=== PATIENT | female | born 1970 | race Caucasian/White ===

== ENCOUNTER 2017-05-18 07:01 | Day surgery (SDC) | payer OTHER ==
[2017-05-17 08:42] VITALS: BMI 28.3
[2017-05-18 07:35] VITALS: TEMP 97.9
[2017-05-18] MEDS ORDERED: MIDAZOLAM HCL 2 MG/2 ML SINGLE DOSE VIAL ONE (09:50)
[2017-05-18] MEDS ORDERED: PROPOFOL 20 ML ONE (09:57)
[2017-05-18] MEDS ORDERED: LIDOCAINE HCL 1%, 10 MG/ML (50 mL VIAL) IJ ONE (10:03)
[2017-05-18] MEDS ORDERED: IOHEXOL 180 MG/1 ML ML IJ ONE (10:03)
[2017-05-18] MEDS ORDERED: BETAMET ACET/BETAMET NA PH 30 MG/5 ML VIAL IJ ONE (10:03)
[2017-05-18] MEDS ORDERED: BUPIVACAINE HCL/PF 0.25% (2.5MG/ML) 10 ML VIAL IJ ONE (10:03)
[2017-05-18 11:53] VITALS: BP 111/69; PULSE 57
[2017-05-18] MEDS ORDERED: BUPIVACAINE HCL/PF 0.25% (2.5MG/ML) 10 ML VIAL ONE (12:09)
[2017-05-18] MEDS ORDERED: BETAMET ACET/BETAMET NA PH 30 MG/5 ML VIAL ONE (12:09)
[2017-05-18] MEDS ORDERED: LIDOCAINE HCL 1%, 10 MG/ML (20ML VIAL) ONE (12:09)
--- NOTE | 2017-05-18 15:33 | PROC ---
Procedure Note Procedure: Date of service: 05/18/2017 Preoperative Diagnosis: Low back pain and lumbar radiculopathy on Left Postoperative Diagnosis: Same Procedure Performed: Lumbar Epidural Steroid Injection (LESI) on Left L4-5 with dye under Fluoroscopy Anesthesia: Local / MAC Anesthesiologist: Procedure: I discussed with the patient in detail about the risks, benefits, and alternatives to treatment not only limited to infection, headache, numbness , weakness, and injury to nerves, blood vessels and muscles. The patient understood, agreed and signed the written consent. The patient was placed in the prone position with the head, abdomen and legs supported with the pillows. The lumbosacral area was prepped and draped with Betadine times three in a sterile fashion. Lumbar vertebrae were identified under the C-arm. At L4-5/ level on the Left side, 3 ml of 1 % Lidocaine was infiltrated into the skin and subcutaneous tissue. A 3 inch, #20 gauge Tuohy needle was advanced to the epidural space with loss of resistance technique under fluoroscopic guidance. Aspiration was negative for cerebrospinal fluid and blood. 2ml of Omnipaque ( radio-opaque dye) was injected to confirm the tip of the needle into epidural space and spread of dye. There was no CSF or vascular spread. The spread of dye was noted cranially and caudally on epidurogram. Aspiration was done again which was negative. A solution of 2.5 ml of Celestone 2.5 ml of 0.25% Marcaine and a total of 5 ml was injected slowly. While Tuohy needle was withdrawn 2.0 ml of 1 % Lidocaine was infiltrated. Bleeding was checked. Betadine was wiped off. A sterile bandage was placed. The patient tolerated the procedure well. There were no immediate complications. The patient was transferred to the recovery room. The patient was observed for some time and discharged as per ASU criteria. The patient was told to apply ice at the injection site. Follow up appointment was given and also call my office at [phone]. If there is any problem, call my office or report to Emergency Room. Salazar Urias M.D.
== END 2017-05-18 11:25 | disposition home or self-care (01) ==
LOC: JASU-SURG 07:01
PROVIDERS: ATTEND Physical Medicine & Rehabilitation
PROC: 3E0R33Z Introduction of Anti-inflammatory into Spinal Canal, Percutaneous Approach (ICD-10-PCS; 2017-05-18)
PROC: B01BYZZ Fluoroscopy of Spinal Cord using Other Contrast (ICD-10-PCS; 2017-05-18)
PROC: 3E0R3BZ Introduction of Anesthetic Agent into Spinal Canal, Percutaneous Approach (ICD-10-PCS; principal; 2017-05-18 09:00)
DX: M54.16 Radiculopathy, lumbar region (principal); M54.9 Dorsalgia, unspecified
CPT/HCPCS: 76000-TC-FY; 84703

== ENCOUNTER 2017-09-18 12:58 | Emergency (ER) | payer OTHER ==
[2017-09-18 13:29] VITALS: BP 149/87; PULSE 70; TEMP 98.4; BMI 29.0
[2017-09-18] MEDS ORDERED: DIPHTH,PERTUSS(ACELL),TET 0.5 ML DISP.SYRIN IM ONE (14:17)
--- NOTE | 2017-09-18 14:23 | PDOC ---
History of Present Illness - General Chief Complaint: Laceration Stated Complaint: LACERATION Time Seen by Provider: 09/18/17 13:39 History Source: Patient Exam Limitations: Clinical Condition - History of Present Illness Initial Comments: 09/18/17 14:18 Patient with no significant medical history presenting with laceration to back of left hand by glass at home an hour ago. Patient does not recall last tetanus vaccine Timing/Duration: 1 hour Past History - Past Medical History Allergies/Adverse Reactions: Allergies Allergy/AdvReac Type Severity Reaction Status Date / Time No Known Allergies Allergy Verified 09/18/17 13:29 Home Medications: Ambulatory Orders Cephalexin [Keflex] 500 mg PO BID 7 Days #14 capsule 09/18/17 Ibuprofen 800 mg PO TID PRN #12 tablet 09/18/17 Mupirocin Ointment [Bactroban 2% Ointment -] 1 applic TP BID #1 tube 09/18/17 COPD: No - Surgical History Abdominal Surgery: Yes (tubal ligation) - Immunization History Immunization Up to Date: Yes - Suicide/Smoking/Psychosocial Hx Smoking History: Never smoked Have you smoked in the past 12 months: No Number of Cigarettes Smoked Daily: 0 Cigars Per Day: 0 Information on smoking cessation initiated: No Hx Alcohol Use: No Drug/Substance Use Hx: No Substance Use Type: None Hx Substance Use Treatment: No Review of Systems - Review of Systems Able to Perform ROS?: Yes Is the patient limited Mongolian proficient: No Constitutional: No: Chills, Diaphoresis, Fever, Loss of Appetite, Malaise, Night Sweats, Weakness, Weight Stable, Unintentional Wgt. Loss, Unexplained wgt Loss, Other HEENTM: No: Eye Pain, Blurred Vision, Tearing, Recent change in vision, Double Vision, Cataracts, Ear Pain, Ocular Prothesis, Ear Discharge, Nose Pain, Nose Congestion, Tinnitus, Nose Bleeding, Hearing Loss, Throat Pain, Throat Swelling , Mouth Pain, Dental Problems, Difficulty Swallowing, Mouth Swelling, Other Respiratory: No: Cough, Orthopnea, Shortness of Breath, SOB with Exertion, SOB at Rest, Stridor, Wheezing, Productive cough, Hemoptysis, Other Cardiac (ROS): No: Chest Pain, Edema, Irregular Heart Rate, Lightheadedness, Palpitations, Syncope, Chest Tightness, Other ABD/GI: No: Abdominal Distended, Abd. Pain w/ defecation, Blood Streaked Bowels , Constipated, Diarrhea, Difficulty Swallowing, Nausea, Poor Appetite, Poor Fluid Intake, Rectal Bleeding, Vomiting, Indigestion, Abdominal cramping, Tarry Stools, Other Musculoskeletal: Yes: Muscle Pain (left hand over laceration) Integumentary: Yes: See HPI, Other (left back of hand laceration) All Other Systems: Reviewed and Negative *Physical Exam - Vital Signs Last Vital Signs Temp Pulse Resp BP Pulse Ox 98.4 F 70 18 149/87 100 09/18/17 13:26 09/18/17 13:26 09/18/17 13:26 09/18/17 13:26 09/18/17 13:26 - Physical Exam Comments: 09/18/17 14:20 GENERAL: Well developed, well nourished. Awake and alert. No acute distress. HEENT: Normocephalic, atraumatic. PERRLA, EOMI. No conjunctival pallor. Sclera are non- icteric. Moist mucous membranes. Oropharynx is clear. NECK: Supple. Full ROM. No JVD. Carotid pulses 2+ and symmetric, without bruits. No thyromegaly. No lymphadenopathy. CARDIOVASCULAR: Regular rate and rhythm. No murmurs, rubs, or gallops. Distal pulses are 2+ and symmetric. PULMONARY: No evidence of respiratory distress. Lungs clear to auscultation bilaterally. No wheezing, rales or rhonchi. ABDOMINAL: Soft. Non-tender. Non-distended. No rebound or guarding. No organomegaly. Normoactive bowel sounds. MUSCULOSKELETAL 3cm laceration to dorsal aspect of left hand. Normal neuro exam of left hand Normal range of motion at all joints. No bony deformities or tenderness. No CVA tenderness. EXTREMITIES: No cyanosis. No clubbing. No edema. No calf tenderness. SKIN: 3 cm superficial laceration to dorsal aspect of left hand third to fourth metacarpals with minimal bleeding NEUROLOGICAL: Alert, awake, appropriate. Cranial nerves 2-12 intact. No deficits to light touch and temperature in face, upper extremities and lower extremities. No motor deficits in the in face, upper extremities and lower extremities. Normoreflexic in the upper and lower extremities. Normal speech. Toes are down- going bilaterally. Gait is normal without ataxia. PSYCHIATRIC: Cooperative. Good eye contact. Appropriate mood and affect. General Appearance: Yes: Nourished, Appropriately Dressed. No: Apparent Distress Procedures - Laceration/Wound Repair Left Posterior Distal Dorsal Hand Wound Length: 2.6 to 5.0 cm Wound Explored: no foreign body present Wound's Depth, Shape: superficial, linear Irrigated w/ Saline: Yes Betadine Prep: Yes Anesthesia: 1% Lidocaine Amount of Anesthetic (ccs): 2 Wound Debrided: none Wound Repaired With: Sutures Suture Size/Type: 5:0, nylon Number of Sutures: 3 Layer Closure: No Sterile Dressing Applied: Yes Splint Applied: No Sling Applied: No Progress: 09/18/17 14:24 A centimeters superficial laceration to dorsal aspect of left hand clean with Betadine. Wound irrigated with normal saline. wound infiltrated with 2 mL 1% lidocaine. Wound closed with 3 interrupted 5-0 nylon sutures. Hemostasis achieved bacitracin applied to wound and covered with adhesive bandage. Tetanus was seen given the patient tolerated procedure well Medical Decision Making - Medical Decision Making 09/18/17 14:26 Patient with no significant past medical history presenting with laceration to back of left hand. Wound closed with 3 interrupted sutures sterile fashion. Tetanus vaccine given funk discharge home on prophylactic Keflex and topical Bactroban. Patient to follow-up in a week for suture removal *DC/Admit/Observation/Transfer Diagnosis at time of Disposition: Hand laceration Qualifiers: Encounter type: initial encounter Foreign body presence: without foreign body Laterality: left Qualified Code(s): S61.412A - Laceration without foreign body of left hand, initial encounter - Discharge Dispostion Disposition: HOME Condition at time of disposition: Good Decision to Admit order: No - Prescriptions Prescriptions: Cephalexin [Keflex] 500 mg PO BID 7 Days #14 capsule Ibuprofen 800 mg PO TID PRN #12 tablet PRN Reason: pain Mupirocin Ointment [Bactroban 2% Ointment -] 1 applic TP BID #1 tube - Referrals Referrals: Mansoor Woods MD [Primary Care Provider] - - Patient Instructions Additional Instructions: Take medications as prescribed. Apply topical cream to wound twice a day and follow-up in one week for suture removal - Post Discharge Activity
== END 2017-09-18 15:24 | disposition home or self-care (01) ==
LOC: JERFT 12:58
PROC: 0HQGXZZ Repair Left Hand Skin, External Approach (ICD-10-PCS; principal; 2017-09-18)
PROC: 3E0234Z Introduction of Serum, Toxoid and Vaccine into Muscle, Percutaneous Approach (ICD-10-PCS; 2017-09-18)
DX: S61.412A Laceration without foreign body of left hand, initial encounter (principal); W25.XXXA Contact with sharp glass, initial encounter; Y93.89 Activity, other specified; Y92.038 Other place in apartment as the place of occurrence of the external cause; Y99.8 Other external cause status
CPT/HCPCS: 12002; 90471; 90715; 99281-25

== ENCOUNTER 2017-09-25 13:20 | Emergency (ER) | payer OTHER ==
[2017-09-25 13:25] VITALS: BP 109/62; PULSE 68; TEMP 97.6; BMI 30.2
--- NOTE | 2017-09-25 13:36 | PDOC ---
Suture Removal/Wound Check HPI - History of Present Illness Chief Complaint: Suture/Staple Removal(Here) Stated Complaint: STITCHES REMOVAL Time Seen by Provider: 09/25/17 13:26 History Source: Yes: Patient, Old Records Exam Limitations: Yes: No Limitations Treated at: [facility] ED Date of Last ED visit: 09/18/17 - Previous ED Treatment Type of procedure performed on last visit: Yes: Laceration Repair Tetanus Immunization: Yes: Up to Date Antibiotics Prescribed: No Past History - Past Medical History Allergies/Adverse Reactions: Allergies Allergy/AdvReac Type Severity Reaction Status Date / Time No Known Allergies Allergy Verified 09/25/17 13:25 Home Medications: Ambulatory Orders Cephalexin [Keflex] 500 mg PO BID 7 Days #14 capsule 09/18/17 Ibuprofen 800 mg PO TID PRN #12 tablet 09/18/17 Mupirocin Ointment [Bactroban 2% Ointment -] 1 applic TP BID #1 tube 09/18/17 COPD: No - Surgical History Abdominal Surgery: Yes (tubal ligation) - Immunization History Immunization Up to Date: Yes - Suicide/Smoking/Psychosocial Hx Smoking History: Never smoked Have you smoked in the past 12 months: No Number of Cigarettes Smoked Daily: 0 Cigars Per Day: 0 Hx Alcohol Use: No Drug/Substance Use Hx: No Substance Use Type: None Hx Substance Use Treatment: No Suture Removal/Wound Check PE - Physical Exam Laceration/Wound Check Symptoms: reports: None Current Severity Level: None Maximum Severity Level: None Pain Localization: None Location of Laceration/Wound: left: Hand Pain Radiation: None *Review of Systems - Review of Systems Able to Perform ROS?: Yes All Other Systems: Reviewed and Negative *Physical Exam - Vital Signs Last Vital Signs Temp Pulse Resp BP Pulse Ox 97.6 F 68 18 109/62 99 09/25/17 13:23 09/25/17 13:23 09/25/17 13:23 09/25/17 13:23 09/25/17 13:23 - Physical Exam General Appearance: Yes: Appropriately Dressed. No: Apparent Distress Integumentary: positive: Other (Laceration with [address] presents to the dorsum of the right hand over the MCP of the fourth digit) Medical Decision Making - Medical Decision Making 09/25/17 13:35 A/P: 46-year-old woman with laceration to her left hand sustained one week ago [address] to the dorsum of the left hand over the fourth MCP Wound edges well approximated but not healed at this time Mild erythema noted No discharge or drainage present No pain to palpation Patient advised to return in 3 days for reevaluation as sutures are not ready to be removed at this time. *DC/Admit/Observation/Transfer Diagnosis at time of Disposition: Encounter for wound re-check - Discharge Dispostion Disposition: HOME Condition at time of disposition: Stable Decision to Admit order: No - Referrals Referrals: Mansoor Woods MD [Primary Care Provider] - - Patient Instructions Additional Instructions: Sutures were not ready to be removed today. Return in 3 days for reevaluation of wound and possible suture removal. - Post Discharge Activity
== END 2017-09-25 13:38 | disposition home or self-care (01) ==
LOC: JERFT 13:20
DX: Z48.817 Encounter for surgical aftercare following surgery on the skin and subcutaneous tissue (principal)
CPT/HCPCS: 99281-25

== ENCOUNTER 2018-01-29 14:53 | Emergency (ER) | payer OTHER ==
[2018-01-29 14:59] VITALS: BP 131/73; PULSE 104; TEMP 98.4; BMI 29.0
--- NOTE | 2018-01-29 15:17 | PDOC ---
History of Present Illness - General Chief Complaint: Urinary Problem Stated Complaint: POST OP PAIN Time Seen by Provider: 01/29/18 15:17 - History of Present Illness Initial Comments: 47 year old female with history of cystocele (multiparous x 6, s/p surgical correction 11 days prior because of urinary retention) and radiculopathy ( previous epidural) presenting with urinary retention since yesterday. Patient states that she was at Dr. Woods (urology) yesterday and he performed a catheterization and she as able to urinate at home that night. Since then she has had trouble urinating and has had a painful, enlarging lower abdomen. Denies fevers, chills, nausea, vomiting, or other symptoms. 01/29/18 15:29 Past History - Past Medical History Allergies/Adverse Reactions: Allergies Allergy/AdvReac Type Severity Reaction Status Date / Time No Known Allergies Allergy Verified 01/29/18 14:59 Home Medications: Ambulatory Orders NK [No Known Home Medication] 09/25/17 COPD: No - Surgical History Abdominal Surgery: Yes (tubal ligation) - Immunization History Immunization Up to Date: Yes - Suicide/Smoking/Psychosocial Hx Smoking History: Never smoked Have you smoked in the past 12 months: No Number of Cigarettes Smoked Daily: 0 Cigars Per Day: 0 Hx Alcohol Use: No Drug/Substance Use Hx: No Substance Use Type: None Hx Substance Use Treatment: No Review of Systems - Review of Systems Constitutional: No: Chills, Diaphoresis, Fever Respiratory: No: Cough, Shortness of Breath, Stridor Cardiac (ROS): No: Chest Pain, Edema, Irregular Heart Rate ABD/GI: No: Diarrhea, Nausea, Vomiting : No: Burning, Dysuria, Discharge Musculoskeletal: No: Back Pain Integumentary: No: Bruising, Change in Color, Change in Hair/Nails, Lumps Neurological: No: Headache, Numbness, Paresthesia Psychiatric: No: Anxiety, Depression Hematologic/Lymphatic: No: Anemia, Blood Clots, Easy Bleeding *Physical Exam - Vital Signs Last Vital Signs Temp Pulse Resp BP Pulse Ox 98.4 F 104 H 20 131/73 100 01/29/18 14:55 01/29/18 14:55 01/29/18 14:55 01/29/18 14:55 01/29/18 14:55 - Physical Exam General Appearance: Yes: Nourished, Appropriately Dressed, Apparent Distress, Mild Distress HEENT: positive: EOMI, IRMA, Normal ENT Inspection, Normal Voice Neck: positive: Trachea midline, Normal Thyroid, Supple. negative: Tender, Rigid Respiratory/Chest: positive: Lungs Clear, Normal Breath Sounds. negative: Chest Tender, Respiratory Distress, Accessory Muscle Use Cardiovascular: positive: Regular Rhythm, Tachycardia Gastrointestinal/Abdominal: positive: Normal Bowel Sounds, Tender, Protuberent, Tenderness (lower abdomen/ suprapubic region large and tender to palpation. ) Musculoskeletal: positive: Normal Inspection. negative: Decreased Range of Motion Extremity: positive: Normal Capillary Refill, Normal Inspection, Normal Range of Motion, Pelvis Stable. negative: Tender Integumentary: positive: Normal Color, Dry, Warm Neurologic: positive: Fully Oriented, Alert, Normal Mood/Affect, Normal Response , Motor Strength 5/5 Moderate Sedation - Procedure Monitoring Vital Signs: Procedure Monitoring Vital Signs Temperature 98.4 F 01/29/18 14:55 Pulse Rate 104 H 01/29/18 14:55 Respiratory Rate 20 01/29/18 14:55 Blood Pressure 131/73 01/29/18 14:55 O2 Sat by Pulse Oximetry (%) 100 01/29/18 14:55 Medical Decision Making - Medical Decision Making 47 year old 11 days s/p cystocele repair with post op urinary retention issues presenting will lower abdominal cramping and lack of urination for the past 18 hours. Urinary catheter was placed and 250 mL drained out with relief of suprapubic pressure and pain. UA negative for infection, culture pending. We spoke to Dr. Woods who said we could discharge her with a leg bag and have her follow up in his office on Wednesday morning at 9 AM. 01/29/18 16:42 *DC/Admit/Observation/Transfer Diagnosis at time of Disposition: Urinary retention with incomplete bladder emptying - Discharge Dispostion Disposition: HOME Condition at time of disposition: Improved Decision to Admit order: No - Referrals Referrals: Mansoor Woods MD [Primary Care Provider] - - Patient Instructions Printed Discharge Instructions: DI for Urinary Retention in Women Additional Instructions: Mantenga el catter de Cespedes en jones lugar hasta que babak al Dr. [facility] la maana. La [place]ols[place] debe permanecer alrededor de jones pierna. Regrese a la giovana de emergencias si tiene sntomas nuevos o que empeoran. - Post Discharge Activity
--- NOTE | 2018-01-29 16:06 | PDOC ---
Attending Attestation - HPI HPI: 01/29/18 16:42 The patient is a 47 year old female with past medical history of uterine prolapse presents to the ED with urinary retention since yesterday. Patient was seen by her urologist yesterday which placed a catheter and she was able to urinate a little yesterday. But since then, shes had dysuria and difficulty urinating. Denies any fever or chills. Denies any hematuria. - Medical Decision Making 01/29/18 16:42 Documentation prepared by Shefali Johnson, acting as medical claims examiner for Sierra Delgadillo MD. <Shefali Johnson - Last Filed: 01/29/18 16:42> - Resident Resident Name: Wolfgang Madrigal - ED Attending Attestation I have performed the following: I have examined & evaluated the patient, The case was reviewed & discussed with the resident, I agree w/resident's findings & plan, Exceptions are as noted - Physicial Exam PE: GENERAL: Awake, alert, and fully oriented, in no acute distress HEAD: No signs of trauma EYES: PERRLA, EOMI, sclera anicteric, conjunctiva clear ENT: Auricles normal inspection, hearing grossly normal, nares patent, oropharynx clear without exudates. Moist mucosa NECK: Normal ROM, supple, no lymphadenopathy, JVD, or masses LUNGS: Breath sounds equal, clear to auscultation bilaterally. No wheezes, and no crackles HEART: Regular rate and rhythm, normal S1 and S2, no murmurs, rubs or gallops ABDOMEN: Soft, nontender, normoactive bowel sounds. No guarding, no rebound. No masses EXTREMITIES: Normal range of motion, no edema. No clubbing or cyanosis. No cords, erythema, or tenderness NEUROLOGICAL: Cranial nerves II through XII grossly intact. Normal speech, normal gait SKIN: Warm, Dry, normal turgor, no rashes or lesions noted. - Medical Decision Making Pt with relief s/p iverson placement. +1100 cc in the iverson bag. Outpatient urology f/u, leg bag. <Sierra Delgadillo - Last Filed: 01/29/18 17:58>
[2018-01-29 16:31] LABS: URINE APPEARANCE CLEAR; URINE BILIRUBIN NEGATIVE (<2.0 mg/dL); URINE COLOR STRAW; URINE GLUCOSE (UA) NEGATIVE (NEGATIVE); URINE KETONE NEGATIVE (NEGATIVE); URINE LEUK ESTERASE NEGATIVE (NEGATIVE); URINE NITRITE NEGATIVE (NEGATIVE); URINE PROTEIN NEGATIVE (NEGATIVE); URINE UROBILINOGEN NEGATIVE mg/dL (0.2-1.0)
== END 2018-01-29 17:30 | disposition home or self-care (01) ==
LOC: JER 14:53
DX: R33.8 Other retention of urine (principal); G89.18 Other acute postprocedural pain
CPT/HCPCS: 81003; 87086; 99283-25

== ENCOUNTER 2018-02-11 18:34 | Emergency (ER) | payer OTHER ==
--- NOTE | 2018-02-11 18:39 | PDOC ---
Rapid Medical Evaluation Time Seen by Provider: 02/11/18 18:36 Medical Evaluation: Allergies Allergy/AdvReac Type Severity Reaction Status Date / Time No Known Allergies Allergy Verified 01/29/18 14:59 I have performed a brief in-person evaluation of this patient. The patient presents with a chief complaint of: pain with urination Pertinent physical exam findings: left pelvic pain I have ordered the following: UA/culture, labs The patient will proceed to the ED for further evaluation. Discharge Disposition - Diagnosis Dysuria - Referrals Referrals: Mansoor Woods MD [Primary Care Provider] - - Patient Instructions - Post Discharge Activity
[2018-02-11 18:41] VITALS: BP 155/92; PULSE 111; TEMP 97.8; BMI 28.3
[2018-02-11 18:54] LABS: URINE APPEARANCE CLOUDY; URINE BILIRUBIN NEGATIVE (<2.0 mg/dL); URINE COLOR AMBER; URINE GLUCOSE (UA) NEGATIVE (NEGATIVE); URINE KETONE NEGATIVE (NEGATIVE); URINE LEUK ESTERASE 3+ (NEGATIVE); URINE NITRITE POSITIVE (NEGATIVE); URINE PROTEIN NEGATIVE (NEGATIVE); URINE UROBILINOGEN 4.0 E.U/dl mg/dL (0.2-1.0)
[2018-02-11] MEDS ORDERED: ACETAMINOPHEN 1000 MG/100 ML VIAL (NON FORMULARY) IVPB ONE (19:23)
[2018-02-11 19:29] LABS: EPI CELLS FEW /HPF (FEW); URINE BACTERIA RARE /hpf (NONE SEEN); URINE MUCUS RARE
[2018-02-11] MEDS ORDERED: ACETAMINOPHEN INJECTION 100 ML IVPB ONE (19:48)
[2018-02-11 20:19] LABS: BASO % 0.2 % (0-2.0); EOS % 0.7 % (0-4.5); HEMATOCRIT 33.5 % (32.4-45.2); HEMOGLOBIN 11.7 GM/dL (10.7-15.3); LYMPH % 13.3 % (8-40); MCH 29.6 pg (25.7-33.7); MCHC 34.8 g/dl (32.0-36.0); MONO % 6.3 % (3.8-10.2); NEUT % 79.5 % (42.8-82.8); PLATELET COUNT 439 K/MM3 (134-434); RBC 3.94 M/mm3 (3.60-5.2); RDW 13.2 % (11.6-15.6); WHITE BLOOD COUNT 11.5 K/mm3 (4.0-10.0)
--- NOTE | 2018-02-11 20:31 | PDOC ---
History of Present Illness - General Chief Complaint: Urinary Problem Stated Complaint: Urinary Problem Time Seen by Provider: 02/11/18 18:36 History Source: Patient, Family (daughter), Process Improvement Specialist Used ([employer] [id number]) Exam Limitations: Language Barrier - History of Present Illness Initial Comments: 02/11/18 20:21 The patient is a 47 year old female with a PMH of cystocele, s/p surgical repair Jan 18 2018, urinary retention, radiculopathy that presented today to ED complaining of urinary retention. She visited her urologist, Dr Woods yesterday and states that didn't have any problems with urination after Cespedes was removed. She was put on prophylactic Nitrofurantoin, on Phenzopyridine and Bethanechol. Overnight she started having problems with retention of urine that got worse to the point that around 3PM she couldn't urinate at all. She was also complaining of lower back pain on left side, radiating to her left leg and chills. The pain disappeared when Cespedes was placed on arrival to ED. When i saw the patient she was only complaining of discomfort in left lower abdomen and burning with urination. She denies fever, hematuria, palpitations, dizziness, nausea, vomiting. PCP: Mansoor Collazo MD Urologist: Dr. Nathalie Woods Past History - Past Medical History Allergies/Adverse Reactions: Allergies Allergy/AdvReac Type Severity Reaction Status Date / Time No Known Allergies Allergy Verified 01/29/18 14:59 Home Medications: Ambulatory Orders Cefuroxime Axetil [Cefuroxime] 250 mg PO BID 5 Days #10 tablet 02/11/18 COPD: No Other medical history: chronic back pain - Surgical History Abdominal Surgery: Yes (tubal ligation) - Immunization History Immunization Up to Date: Yes - Suicide/Smoking/Psychosocial Hx Smoking History: Never smoked Have you smoked in the past 12 months: No Number of Cigarettes Smoked Daily: 0 Cigars Per Day: 0 Hx Alcohol Use: No Drug/Substance Use Hx: No Substance Use Type: None Hx Substance Use Treatment: No Review of Systems - Review of Systems Able to Perform ROS?: Yes Is the patient limited Bahraini proficient: Yes Constitutional: Yes: Symptoms Reported, Chills. No: Fever HEENTM: No: Symptoms Reported Respiratory: No: Symptoms reported, Cough, Shortness of Breath Cardiac (ROS): Yes: Lightheadedness. No: Symptoms Reported, Chest Pain, Irregular Heart Rate, Palpitations ABD/GI: Yes: Symptoms Reported, Other (LLQ discomfort). No: Constipated, Diarrhea, Nausea, Vomiting : Yes: Symptoms Reported, See HPI, Burning, Dysuria, Flank Pain, Other ( retention). No: Hematuria Musculoskeletal: Yes: Symptoms Reported, Back Pain *Physical Exam - Vital Signs Last Vital Signs Temp Pulse Resp BP Pulse Ox 97.8 F 111 H 24 H 155/92 02/11/18 18:36 02/11/18 18:36 02/11/18 18:36 02/11/18 18:36 - Physical Exam General Appearance: Yes: Nourished, Appropriately Dressed HEENT: positive: EOMI Respiratory/Chest: positive: Lungs Clear, Normal Breath Sounds. negative: Respiratory Distress, Accessory Muscle Use Cardiovascular: positive: Regular Rhythm, Regular Rate, S1, S2. negative: Edema , Murmur Gastrointestinal/Abdominal: positive: Normal Bowel Sounds, Tender (LLQ). negative: Guarding, Rebound Moderate Sedation - Procedure Monitoring Vital Signs: Procedure Monitoring Vital Signs Temperature 97.8 F 02/11/18 18:36 Pulse Rate 111 H 02/11/18 18:36 Respiratory Rate 24 H 02/11/18 18:36 Blood Pressure 155/92 02/11/18 18:36 O2 Sat by Pulse Oximetry (%) ED Treatment Course - LABORATORY CBC & Chemistry Diagram: 02/11/18 20:00 02/11/18 20:00 - ADDITIONAL ORDERS Additional order review: Laboratory Results 02/11/18 18:40 Urine Color Usha Urine Appearance Cloudy Urine pH 8.0 D Ur Specific [place] 1.005 L Urine Protein Negative Urine Glucose (UA) Negative Urine Ketones Negative Urine Blood 3+ H Urine Nitrite Positive Urine Bilirubin Negative Urine Urobilinogen 4.0 e.u/dl H Ur Leukocyte Esterase 3+ H Urine WBC (Auto) 82 Urine RBC (Auto) 1 Ur Epithelial Cells Few Urine Bacteria Rare Urine Mucus Rare - Medications Given in the ED: ED Medications Discontinued Medications Generic Name Dose Route Start Last Admin Trade Name Freq PRN Reason Stop Dose Admin Acetaminophen 1,000 mg 02/11/18 19:23 02/11/18 19:40 Ofirmev Injection - IVPB 02/11/18 19:24 1,000 mg ONCE ONE Administration Medical Decision Making - Medical Decision Making 02/11/18 20:37 47 yo female with a PMH of urinary retention, cystocele, that presented with urinary retention. Cespedes was placed with output of 350 cc od pinkish urine, ordered CBC, CMP, UA. UA with 3+ leuk est, 82 WBC. CBC, CMP pending. 02/11/18 21:16 CBC: WBC 11.5, nl CMP. We called Dr Woods that recommended discharge home with Cespedes cath, antibiotics and follow up on Wednesday (in 3 days). The patient will be given one dose of Ceftriaxone 1 g IV and Cefuroxime 250 mg BID for 5 days, follow up with Urologist on Wednesday. *DC/Admit/Observation/Transfer Diagnosis at time of Disposition: Dysuria, Urinary retention - Discharge Dispostion Disposition: HOME Decision to Admit order: No - Prescriptions Prescriptions: Cefuroxime Axetil [Cefuroxime] 250 mg PO BID 5 Days #10 tablet - Referrals Referrals: Mansoor Woods MD [Primary Care Provider] - 3 days - Patient Instructions Printed Discharge Instructions: DI for Urinary Retention in Women Additional Instructions: You were seen in Emergency Room for urinary retention. We did lab work, urine test and you had Cespedes catheter was placed. You have urinary tract infection that was treated with one dose of Ceftriaxone intravenously and we prescribed antibiotic Cefuroxime to continue twice a day for [address] Woods on Wednesday. If you have fever, severe abdominal pain, back pain or worsening of any of your symptoms, come back to Emergency Room as soon as possible. - Post Discharge Activity
[2018-02-11 20:43] LABS: ALBUMIN 3.9 g/dl (3.4-5.0); ALK PHOS 147 U/L (45-117); ANION GAP 8 MMOL/L (8-16); BILIRUBIN,TOTAL 0.3 mg/dL (0.2-1); BLOOD UREA NITROGEN 11 mg/dL (7-18); CALCIUM 8.6 mg/dL (8.5-10.1); CHLORIDE 103 mmol/L (98-107); CO2 28 mmol/L (21-32); CREATININE 0.7 mg/dL (0.55-1.3); GLUCOSE,RANDOM 110 mg/dL (74-106); POTASSIUM 3.8 mmol/L (3.5-5.1); SGOT/AST 19 U/L (15-37); SGPT/ALT 28 U/L (13-61); SODIUM 139 mmol/L (136-145); TOT PROT 7.4 g/dl (6.4-8.2)
--- NOTE | 2018-02-11 21:03 | PDOC ---
Attending Attestation - HPI HPI: 02/11/18 21:07 The patient is a 47-year-old female with a past medical history significant for cystocele (on Jan 18, 2018 at [facility]) and radiculopathy presents to the emergency department with urinary retentions since yesterday. The patient reports she had her iverson removed at Dr. Rojas office earlier yesterday since then the patients been having difficulty voiding. The patient reports she is able to pass a little urine, unable to empty her bladder. The patient reports associated symptoms of back pain and chills down the legs. The patient reports prior similar incidents 6 times since the cystocele repair. Denies fever, cough, chest pain, SOB, lower abdomen pain, changes in bowel habits, numbness, or loss of sensation. Meds: Macrobid, pyridium (1 tab x3 daily), bethanechol (x1 a day), estradiol cream. Allergies: NKA Social history: None reported Surgical history: tubal ligation and Cystocele repair. PCP: Mansoor Collazo MD Urologist: Dr. Nathalie Woods - Physicial Exam PE: 02/11/18 21:56 GENERAL: The patient is in no acute distress. LUNGS: Breath sounds equal, clear to auscultation bilaterally. No wheezes, and no crackles. HEART:Regular rate and rhythm, normal S1 and S2 without murmur, rub or gallop. ABDOMEN: Soft, nontender, normoactive bowel sounds. No guarding, no rebound. No masses palpable. : Urinary iverson in place that draining 300 cc of yellow urine. EXTREMITIES: Normal range of motion, no edema. No clubbing or cyanosis. No erythema, or tenderness. - Medical Decision Making 02/11/18 21:07 Documentation prepared by Enirqueta Styles, acting as medical center representative for Salome Hawkins MD. <Enriqueta Styles - Last Filed: 02/11/18 21:56> - Resident Resident Name: Jessica العراقي - ED Attending Attestation I have performed the following: I have examined & evaluated the patient, The case was reviewed & discussed with the resident, I agree w/resident's findings & plan, Exceptions are as noted - Medical Decision Making 02/11/18 21:17 47 yo F presenting to the ER s/p urinary retention She is s/p surgical repair of cystocele on 01/18 Since that time, he has had a iverson cathether placed and removed 4 times She was last seen by Dr Woods yesterday, iverson cathether was removed Since that time she has been able to void small amounts (+) flank pain (-) fevers or chills Mild suprapubic tenderness 02/11/18 21:42 Laboratory Tests 02/11/18 02/11/18 02/11/18 18:40 20:00 20:00 WBC 11.5 H Hgb 11.7 Hct 33.5 Plt Count 439 H D Neutrophils % 79.5 Lymphocytes % 13.3 D BUN 11 Creatinine 0.7 Urine Blood 3+ H Urine Nitrite Positive Urine Bilirubin Negative Ur Leukocyte Esterase 3+ H Urine WBC (Auto) 82 Urine RBC (Auto) [address] Woods He recommends d/x with leg bag, and start cipro I do not see sensitivities for Cipro will do a dose of Ceftriaxone now followed by cefpodoxime <Salome Hawkins - Last Filed: 02/12/18 19:41>
[2018-02-11] MEDS ORDERED: CEFTRIAXONE 1 GM in DEXTROSE 5%-WATER - 100 ML IVPB ONE (21:06)
[2018-02-11] MEDS ORDERED: CEFTRIAXONE 1 GM/50 ML BAG ONE (21:28)
== END 2018-02-11 21:55 | disposition home or self-care (01) ==
LOC: JER 18:34
PROC: 0T9B70Z Drainage of Bladder with Drainage Device, Via Natural or Artificial Opening (ICD-10-PCS; principal; 2018-02-11)
PROC: 3E033NZ Introduction of Analgesics, Hypnotics, Sedatives into Peripheral Vein, Percutaneous Approach (ICD-10-PCS; 2018-02-11)
PROC: 3E03329 Introduction of Other Anti-infective into Peripheral Vein, Percutaneous Approach (ICD-10-PCS; 2018-02-11)
DX: R30.0 Dysuria (principal); R33.9 Retention of urine, unspecified
CPT/HCPCS: 36415; 51702; 80053; 81003; 81015; 85025; 87086; 87186; 96365; 96375; 99283-25; J0131

== ENCOUNTER 2018-05-12 18:12 | Emergency (ER) | payer OTHER ==
[2018-05-12 18:20] VITALS: TEMP 97.8; BMI 30.2
[2018-05-12] MEDS ORDERED: methylPREDNISolone NA SUCC 125 MG/2 ML VIAL IVPB ONE (18:30)
--- NOTE | 2018-05-12 18:30 | PDOC ---
Attending Attestation - HPI HPI: 05/12/18 20:27 The patient is a 47-year-old female with a past medical history significant for cystocele (on Jan 18, 2018 at [facility]) and radiculopathy presents to the emergency department with hives. The patient was at Urologists office earlier today at where she received an IM Toradol injection, and following she developed hives across arms, neck face, and ears. The patient reports she has the sensation of feeling like her throat is closing. Denies nausea, vomiting. Allergies: NKA Social history: None reported Surgical history: tubal ligation and Cystocele repair. PCP: Mansoor Collazo MD Urologist: Dr. Nathalie Woods - Physicial Exam PE: 05/12/18 20:32 GENERAL: The patient is speaking clear sentence and able to tolerate secretions. Awake, alert, and fully oriented, in no acute distress HEAD: No signs of trauma EYES: PERRLA, EOMI, sclera anicteric, conjunctiva clear ENT: no lip, tongue or pharyngeal swelling. Auricles normal inspection, hearing grossly normal, nares patent, oropharynx clear without exudates. Moist mucosa NECK: Normal ROM, supple, no lymphadenopathy, JVD, or masses LUNGS: No stridor. Breath sounds equal, clear to auscultation bilaterally. No wheezes, and no crackles HEART: Regular rate and rhythm, normal S1 and S2, no murmurs, rubs or gallops ABDOMEN: Soft, nontender. No guarding, no rebound. No masses EXTREMITIES: Normal range of motion, no edema. No clubbing or cyanosis. No cords, erythema, or tenderness NEUROLOGICAL: Cranial nerves II through XII grossly intact. Normal speech, normal gait SKIN: +hives across the face. Hives to the upper back and a single episode to the left medial. Warm, Dry, normal turgor, no rashes or lesions noted. - Medical Decision Making 05/12/18 20:32 Documentation prepared by Enriqeuta Styles, acting as medical lead for Liset Van DO. <Enriqueta Styles - Last Filed: 05/12/18 20:32> - Resident Resident Name: Jody Nelson - ED Attending Attestation I have performed the following: I have examined & evaluated the patient, The case was reviewed & discussed with the resident, I agree w/resident's findings & plan, Exceptions are as noted - Medical Decision Making 05/12/18 18:30 I, Dr. Liset Van, DO, attest that this document has been prepared under my direction and personally reviewed by me in its entirety. I further attest, that it accurately reflects all work, treatment, procedures and medical decision -making performed by me. 05/12/18 19:26 a/p: 47yo female with hives and itching -pt was in Dr. Woods office and received an im dose of meds -states itching and hives started at 4p -no difficulty swallowing, no difficulty speaking, no lip or tongue swelling -pt is tolerating secretions -pt with hives to face, arms, across chest and back -so stridor, no wheezing -will give solumedrol, pepcid, benadryl -will monitor and reassess 05/12/18 19:[address] Woods- pt received IM toradol prior to the pelvic exam 05/12/18 20:57 dvt study negative pt states hx of hives to motrin in the past 05/12/18 20:58 hives resolved pt feels better stable for dc to home answered all questions discussed follow up with her urologist, pmd, allergiest, professor of languages <Liset Van - Last Filed: 05/12/18 20:59>
[2018-05-12] MEDS ORDERED: methylPREDNISolone NA SUCC 125 MG/2 ML VIAL ONE ×2 (18:40→18:42)
[2018-05-12] MEDS ORDERED: FAMOTIDINE 20 MG/50 ML IVPB 20 MG/50 ML MG IVPB ONE ×2 (18:41→18:45)
--- NOTE | 2018-05-12 18:51 | PDOC ---
History of Present Illness - General Chief Complaint: Allergic Reaction Stated Complaint: ALLERGIC REACTION Time Seen by Provider: 05/12/18 18:25 - History of Present Illness Initial Comments: Stacy Diaz is a 47yo woman with a PMH of cystocele, s/p surgical repair Jan 18 2018, urinary retention, radiculopathy who presents with rash, itching, and sensation of throat swelling after receiving an injection today at Dr Brett Woods's office. She states that she was feeling well prior to the injection, but she has since had an itchy, raised red rash over her entire body since going home from her appointment. She also feels that her face appears swollen. She feels that her throat is tight, but she denies any wheezing or difficulty breathing. She has not taken any medication to help with the symptoms. Past History - Past Medical History Allergies/Adverse Reactions: Allergies Allergy/AdvReac Type Severity Reaction Status Date / Time ketorolac [From Toradol] AdvReac Severe Swelling Verified 05/12/18 19:41 Home Medications: Ambulatory Orders Diphenhydramine [Benadryl 12.5 MG/5 ML Oral Solution -] 25 mg PO Q6H PRN #28 ml 05/12/18 Famotidine 20 mg PO DAILY #4 tablet 05/12/18 metroNIDAZOLE [Flagyl -] 250 mg PO TID 05/12/18 predniSONE [Deltasone -] 40 mg PO DAILY 4 Days #8 tablet 05/12/18 COPD: No - Surgical History Abdominal Surgery: Yes (tubal ligation) - Immunization History Immunization Up to Date: Yes - Suicide/Smoking/Psychosocial Hx Smoking History: Never smoked Have you smoked in the past 12 months: No Number of Cigarettes Smoked Daily: 0 Cigars Per Day: 0 Information on smoking cessation initiated: No Hx Alcohol Use: No Drug/Substance Use Hx: No Substance Use Type: None Hx Substance Use Treatment: No Review of Systems - Review of Systems Comments:: General: No fevers, no chills, no weight or appetite change, no malaise HEENT: No changes in vision, no changes in hearing, no congestion, no sore throat CV: No chest pain, no palpitations, no LE edema Pulm: No SOB, no cough, no wheezing GI: No nausea or vomiting, no change in bowel habits, no melena : No frequency, no urgency, no dysuria Musc: No back pain, no joint swelling, no recent injury Skin: No rash, no lesions, no erythema Endo: No excessive thirst, no heat/cold intolerance Heme: No unusual bruising or bleeding, no swollen glands Neuro: No syncope, no numbness/tingling, no focal weakness Vasc: No claudication Psych: No recent change in mood, no SI or HI *Physical Exam - Vital Signs Last Vital Signs Temp Pulse Resp BP Pulse Ox 97.8 F 77 19 149/77 97 05/12/18 18:17 05/12/18 18:17 05/12/18 18:17 05/12/18 18:17 05/12/18 18:17 - Physical Exam Comments: General: Uncomfortable HEENT: PERRL, EOMI, mild swelling around eyes. MMM, voice normal, normal neck ROM, no LAD. No visible oropharyngeal swelling. Cards: RRR, no murmur appreciated Pulm: Comfortable on room air, clear to auscultation bilaterally Abd: Soft, nontender, nondistended Ext: Atraumatic. No LE edema. ROM intact. Strength 5/5 and equal bilaterally Vasc: Extremities WWP. Skin: Diffuse hives Neuro: A&Ox3, CN grossly intact, normal speech, motor/sensory grossly intact and symmetric Psych: Mood appropriate to situation Moderate Sedation - Procedure Monitoring Vital Signs: Procedure Monitoring Vital Signs Temperature 97.8 F 05/12/18 18:17 Pulse Rate 77 05/12/18 18:17 Respiratory Rate 19 05/12/18 18:17 Blood Pressure 149/77 05/12/18 18:17 O2 Sat by Pulse Oximetry (%) 97 05/12/18 18:17 Medical Decision Making - Medical Decision Making 05/12/18 18:45 Stacy Diaz is a 47yo woman with a PMH of cystocele, s/p surgical repair Jan 18 2018, urinary retention, radiculopathy who presents with hives and subjective throat swelling after receiving an injection today at Dr Brett Woods's office. - 50mg IV diphenhydramine, 20mg IV famotidine, 125mg IV methylprednisone ordered - No need for epinephrine at this time, no wheezing or respiratory distress - Attempting to reach Dr Woods to determine what type of injection she was given 05/12/18 19:35 - Dr Van spoke to Dr Woods. Was given toradol during her visit today. When asked, Ms Diaz states that she had a reaction to ibuprofen in the past, with a rash on her face. - Dr Woods reports that he was going to have Ms Diaz come tomorrow for a b/ l DVT study due to a postive Justine's sign. Will order while she is here tonight - Re-examined Ms Diaz. She has b/l plantar foot pain. When dorsiflexed, she has pain in the plantar surface of both feet. Also tender to direct palpation. No calf pain. No swelling. 05/12/18 21:00 - Ultrasound negative for DVT - Continues to feel improved. Will discharge home with close follow up - advised to follow up with her PMD as well as an biofuels plant superintendent for testing in a few weeks. Will continue steroids and antihistamines at home. Discussed with Dr Van. Jody Nelson PGY1 *DC/Admit/Observation/Transfer Diagnosis at time of Disposition: Allergic reaction caused by a drug Qualifiers: Encounter type: initial encounter Qualified Code(s): T78.40XA - Allergy, unspecified, initial encounter - Discharge Dispostion Disposition: HOME Condition at time of disposition: Stable Decision to Admit order: No - Prescriptions Prescriptions: Diphenhydramine [Benadryl 12.5 MG/5 ML Oral Solution -] 25 mg PO Q6H PRN #28 ml PRN Reason: itch Famotidine 20 mg PO DAILY #4 tablet predniSONE [Deltasone -] 40 mg PO DAILY 4 Days #8 tablet - Referrals Referrals: Mansoor Woods MD [Primary Care Provider] - Lavinia Bullard MD [Staff Physician] - - Patient Instructions Printed Discharge Instructions: DI for Adverse Drug Reaction -- Allergic Additional Instructions: Discharge Instructions: You were seen in the emergency deparment for an allergic reaction. You were given allergy medication and a steroid by IV, and your symptoms improved. You also had an ultrasound study (requested by Dr Woods) to make sure you did not have any blood clots in your legs, and this was negative for clots. Home Care: - You have been prescribed an allergy medication called famotidine and a steroid called prednisone. These should be taken daily until completed. - You have also been prescribed a second allergy medication called diphenhydramine (Benedryl) that may be taken every 6 hours as needed for symptoms such as itching, rash, or swelling. This medication may make you sleepy , so do not drive until you know how you will react to the medication. - DO NOT take medications such as ibuprofen (Motrin, Advil) or naproxen (Aleve) as these may also cause an allergic reaction - Make sure you tell your other doctors that you have a problem with NSAID medications such as ketorolac (Toradol), ibuprofen, and naproxen Follow Up: - You should see your regular doctor within the next week for follow up. Make an earlier appointment if your symptoms do not improve by Wednesday. - You have been referred to Dr Bullard for allergy testing. You should make an appointment for two weeks from now. - Seek immediate medical care if you have worsening symptoms, start to feel that your throat is tight, have difficulty breathing, have recurrent swelling in your face, or you have any other medical emergency. - Post Discharge Activity
[2018-05-12 20:08] VITALS: BP 131/70; PULSE 58
== END 2018-05-12 21:03 | disposition home or self-care (01) ==
LOC: JER 18:12
PROC: 3E033GC Introduction of Other Therapeutic Substance into Peripheral Vein, Percutaneous Approach (ICD-10-PCS; principal; 2018-05-12)
PROC: 3E033GC Introduction of Other Therapeutic Substance into Peripheral Vein, Percutaneous Approach (ICD-10-PCS; 2018-05-12)
PROC: 3E0333Z Introduction of Anti-inflammatory into Peripheral Vein, Percutaneous Approach (ICD-10-PCS; 2018-05-12)
DX: T39.8X5A Adverse effect of other nonopioid analgesics and antipyretics, not elsewhere classified, initial encounter (principal); L50.0 Allergic urticaria
CPT/HCPCS: 93970-TC; 99282-25